=== PATIENT | female | born 1955 | race Caucasian/White ===

== ENCOUNTER 2017-08-19 08:27 | Outpatient (CLI) | payer OTHER ==
--- NOTE | 2017-08-19 10:22 | RAD ---
TWO VIEWS OF THE RIGHT CLAVICLE: Date: 08-19-17 Comparison: None. History: Navicular pain. FINDINGS: There is mild degenerative change at the right AC joint with superior osteophyte formation. There is no widening of the acromioclavicular interspace. No displaced fracture is noted. The sternoclavicular joints appear grossly unremarkable. IMPRESSION: No acute osseous abnormality is seen. If there is a palpable abnormality of clinical concern, a CT ex amination is advised. POS: [facility]
[2017-08-19 14:38] LABS: ALT (SGPT) 14 U/L (8-55); AST (SGOT) 16 U/L (5-34); Alkaline Phosphatase 73 U/L (40-150); Anion Gap 13 mmol/L (10-20); BUN (Urea Nitrogen) 15 mg/dL (9.8-20.1); Bilirubin, Total 0.5 mg/dL (0.2-1.2); Calc. Creatinine Clearance 0 mL/min (70-130); Calcium 9.5 mg/dL (7.8-10.44); Carbon Dioxide 28 mmol/L (23-31); Chloride 105 mmol/L (98-107); Cholesterol 274 mg/dl (< 200 Desired); Estimated GFR-MDRD 66; Globulin 2.6 g/dL (2.4-3.5); LDL Cholesterol, Calculated 192 mg/dL; Protein, Total 6.9 g/dL (6.0-8.3)
== END 2017-08-19 08:28 | disposition home or self-care (01) ==
LOC: SCSRAD 08:27
PROVIDERS: ATTEND Family Medicine
DX: M89.8X1 Other specified disorders of bone, shoulder (principal); E78.00 Pure hypercholesterolemia, unspecified
CPT/HCPCS: 36415; 80053; 80061

== ENCOUNTER 2018-12-19 16:04 | Outpatient (CLI) | payer OTHER ==
--- NOTE | 2018-12-19 17:19 | RAD ---
THREE VIEWS LEFT KNEE: History: Left knee pain. ACL repair 1989. FINDINGS: AP, lateral, and oblique views of the left knee demonstrates an ACL repair surgical screw in place. M ild medial and lateral osteophytes seen in the left knee. No acute abnormality is seen. IMPRESSION: 1. Left knee ACL repair. Surgical hardware in place. 2. Mild left knee osteoarthritis. No acute fractures or bony lesions seen. No significant degree of j oint space narrowing or obvious evidence of left knee abnormality seen. No evidence of joint effusion is seen. The anterior compartment is unremarkable. POS: [facility]
== END 2018-12-19 16:05 | disposition home or self-care (01) ==
LOC: SCSRAD 16:04
PROVIDERS: ATTEND Family Medicine
DX: S89.92XD Unspecified injury of left lower leg, subsequent encounter (principal); M17.12 Unilateral primary osteoarthritis, left knee; Z98.890 Other specified postprocedural states

== ENCOUNTER 2019-08-29 15:08 | Outpatient (CLI) | payer OTHER ==
--- NOTE | 2019-08-29 17:25 | ULT ---
THYROID ULTRASOUND: Date: 08/29/19 HISTORY: Thyroid nodule. FINDINGS: Real-time imaging of the right and left lobes of thyroid gland performed. Right lobe measures 1.3 x 1 .6 x 4.4 cm. Left lobe measures 1.2 x 1.7 x 4.0 cm. Small bilateral thyroid nodules are identified. Gland is somewhat heterogeneous. The largest nodule i s on the right measuring 1.2 cm in maximum size. It is mildly hyperechoic to surrounding thyroid tiss ue, wider than tall, with slightly ill-defined borders and no calcifications. This corresponds to a T I-RADS 3 lesion. IMPRESSION: Bilateral thyroid nodules. The most suspicious lesion is a TI-RADS 3 lesion of right lobe lower pole region. It is below the threshold of 1.5 cm, which is the threshold for follow-up. POS: [facility]
== END 2019-08-29 15:09 | disposition home or self-care (01) ==
LOC: SCSULT 15:08
PROVIDERS: ATTEND Family Medicine
DX: E04.2 Nontoxic multinodular goiter (principal)
CPT/HCPCS: 76536

== ENCOUNTER 2019-10-06 12:41 | Outpatient (CLI) | payer OTHER ==
--- NOTE | 2019-10-06 13:05 | RAD ---
XR Chest Pa Lat STANDARD HISTORY: Pneumonia of left lower lobe due to infectious organism COMPARISON: 01/16/2018 FINDINGS: The heart size is normal. The lungs are well expanded without pneumothorax or pleural effu sions. There is a focal area of lingular consolidation.. IMPRESSION: Findings are consistent with left-sided pneumonia
== END 2019-10-06 12:42 | disposition home or self-care (01) ==
LOC: SCSRAD 12:41
PROVIDERS: ATTEND Family Medicine
DX: J18.9 Pneumonia, unspecified organism (principal)
CPT/HCPCS: 71046

== ENCOUNTER 2020-07-16 14:00 | Outpatient (CLI) | payer BC ==
--- NOTE | 2020-07-16 16:22 | ULT ---
THYROID ULTRASOUND: Indications: Follow up nodules. Comparison: 08-29-19 FINDINGS: Both lobes are mildly heterogeneous. Right lobe measures 2.0 x 4.3 x 1.7 cm. Left lobe measures 1.6 x 4.3 x 1.3 cm. Small 1 cm nodule in the right lobe is again seen and appears unchanged. There are two tiny nodules in the left lobe identified, one measuring 2-3 mm and the other measuring approximately 4 mm. IMPRESSION: Stable thyroid nodules. POS: [facility]
== END 2020-07-16 14:01 | disposition home or self-care (01) ==
LOC: SCSULT 14:00
PROVIDERS: ATTEND Family Medicine
DX: E04.2 Nontoxic multinodular goiter (principal)
CPT/HCPCS: 76536

== ENCOUNTER 2021-06-11 15:26 | Outpatient (CLI) | payer BC ==
[~2021-06-11 15:26] MED LIST: Iopamidol 370 76% 100 ML VIAL ONE
== END 2021-06-11 15:27 | disposition home or self-care (01) ==
LOC: BICCT 15:26
PROVIDERS: ATTEND Internal Medicine Critical Care Medicine
DX: J47.0 Bronchiectasis with acute lower respiratory infection (principal); R91.8 Other nonspecific abnormal finding of lung field
CPT/HCPCS: 71260; 82565; Q9967

== ENCOUNTER 2021-07-02 11:51 | Outpatient (CLI) | payer BC | END 2021-07-02 11:52 | disposition home or self-care (01) | LOC: BICRAD 11:51 | PROVIDERS: ATTEND Internal Medicine Cardiovascular Disease | DX: R06.02 Shortness of breath (principal); J98.11 Atelectasis | CPT/HCPCS: 71046 ==

== ENCOUNTER 2021-08-21 15:32 | Outpatient (CLI) | payer BC ==
[2021-08-22 12:01] LABS: SARS-CoV-2 PCR by NAA Not Detected (NotDetected)
== END 2021-08-21 15:33 | disposition home or self-care (01) ==
LOC: LABBT 15:32
PROVIDERS: ATTEND Family Medicine
DX: Z01.812 Encounter for preprocedural laboratory examination (principal); Z20.822 Contact with and (suspected) exposure to COVID-19
CPT/HCPCS: U0003; U0005

== ENCOUNTER 2021-08-26 09:39 | Outpatient (CLI) | payer BC | END 2021-08-26 09:40 | disposition home or self-care (01) | LOC: RAD 09:39 | PROVIDERS: ATTEND Family Medicine | DX: R13.19 Other dysphagia (principal); R91.8 Other nonspecific abnormal finding of lung field | CPT/HCPCS: 74220 ==

== ENCOUNTER 2021-09-23 12:11 | Outpatient (CLI) | payer BC | END 2021-09-23 12:12 | disposition home or self-care (01) | LOC: RAD 12:11 | PROVIDERS: ATTEND Internal Medicine Critical Care Medicine | DX: R06.00 Dyspnea, unspecified (principal); R91.8 Other nonspecific abnormal finding of lung field | CPT/HCPCS: 71046 ==

== ENCOUNTER 2023-11-03 14:37 | Outpatient (CLI) | payer MEDICARE, BC | END 2023-11-03 14:38 | disposition home or self-care (01) | LOC: BICULT 14:37 | PROVIDERS: ATTEND Family Medicine | DX: E04.1 Nontoxic single thyroid nodule (principal) | CPT/HCPCS: 76536 ==